=== PATIENT | female | born 2000 | race Caucasian/White ===

== ENCOUNTER → 2019-02-25 | Outpatient (CLI) | payer BC ==
--- NOTE | 2019-02-25 10:09 | REP ---
RIGHT ANKLE SERIES: FOUR VIEWS. HISTORY: Acute right ankle pain. FINDINGS: Four views of the right ankle demonstrate a small accessory navicular ossicle. There is mild anterior ankle swelling. No fractures seen. Ankle mortise is intact. IMPRESSION: No acute bony abnormality. Mild swelling anteriorly. Accessory navicular ossicle.
== END ==
LOC: M CLY 08:16
PROVIDERS: ATTEND Family Medicine
DX: M89.8X7 Other specified disorders of bone, ankle and foot (principal)

== ENCOUNTER → 2020-12-03 | Outpatient (CLI) | payer BC ==
[~2020-12-03] MED LIST: ERYTGEL TOP; HYDR-3713 PO; PORTTAB PO; SULF1TAB93 PO; TRET0.02 TOP
== END ==
LOC: M LABSMTC 10:15
PROVIDERS: ATTEND Anesthesiology
DX: Z01.812 Encounter for preprocedural laboratory examination (principal); Z20.822 Contact with and (suspected) exposure to COVID-19

== ENCOUNTER 2020-12-08 09:43 | Day surgery (SDC) | payer BC ==
[~2020-12-08] VITALS: Ht 160 cm; Wt 78.0 kg
[~2020-12-08 09:43] MED LIST changes: -HYDR-3713 PO; +LR 1,000 ML IV ONE; +ceFAZolin SOD 2 GM in IV 1 EA IV ONE
[2020-12-08] MEDS ORDERED: propofoL 200 MG/20 ML VIAL As Ordered ONE ×2 (09:46→12:12)
[2020-12-08] MEDS ORDERED: LIDOCAINE 2% 100MG/5ML SDV (FOR ANES.) As Ordered ONE (09:46)
[2020-12-08] MEDS ORDERED: fentaNYL 100 MCG/2 ML INJECTION (J3010) As Ordered ONE (09:47)
[2020-12-08] MEDS ORDERED: MIDAZOLAM INJ 2MG/2ML VIAL (J2250 PER 1MG) As Ordered ONE (09:47)
[2020-12-08] MEDS ORDERED: dexameTHASONE 4 MG/ML 1ML VIAL (J1100 PER 1MG) As Ordered ONE ×2 (09:47→10:00)
[2020-12-08] MEDS ORDERED: ONDANSETRON 4MG/2ML VIAL As Ordered ONE (09:47)
--- OUTSIDE RECORDS SUMMARY | 2020-12-08 09:49 | CCD | Continuity of Care Document ---
Author Author Jana KULKARNI DPM Organization Unknown Address [address] [place] [address], [facility] [address] [place] [address] Phone [phone] Care Team Providers Care Nurse Manager Name Role Phone Sharrigabo CHILDRESS Fabián AUTM [phone] Problems Active Problems Provider Date Matt's polly Rodolfo Kulkarni DPM Onset: 10/30/2020 Tailor's bunion Rodolfo Kulkarni DPM Onset: 10/30/2020 Corns and callosities Rodolfo Kulkarni DPM Onset: 10/30/2020 Social History Type Date Description Comments Sex Unknown ETOH Use Rarely consumes alcohol Tobacco Use Start: Unknown Patient has never smoked Allergies, Adverse Reactions, Alerts Description No Known Drug Allergies Medications Active Medications SIG Qnty Indications Ordering Provide r Date Sulfamethoxazole/Trimethoprim DS 800-160mg Tablets Unknown Tretinoin 0.025% Cream Unknown Benzoyl Peroxide-Erythromycin 5-3% Gel Apply To Affected Area Twice Daily Unknown Buspirone HCL 5mg Tablets Fabián Ricardo DO [place]-28 0.15-30mg-mcg Tablets Rodolfo Orozco DO Clotrimazole/Betamethasone Dipropionate 1-0.05% Cream Apply 1 Application To Affected Area(S) Two Times Manda y For 14 Days Unknown Immunizations Description No Information Available Vital Signs Date Vital Result Comment 10/18/2020 3:00pm Height 62 inches 5'2" Weight 160.00 lb BP Systolic 140 mmHg BP Diastolic 70 mmHg Heart Rate 72 /min BMI (Body Mass Index) 29.3 kg/m2 Results Description No Information Available Procedures Date Code Description Status 10/18/2020 58991 X-Ray Foot Complete Completed 10/18/2020 84921 X-Ray Foot Complete Completed Medical Devices Description No Information Available Encounters Type Date Location Provider Dx Diagnosis Office Visit 11/29/2020 2:45p [place] [facility] Rodolfo Kulkarni DPM M21.629 Bunionette of unspecified foot L84 Corns and callosities Office Visit 10/18/2020 3:00p [place] [facility] Rodolfo Kulkarni DPM M21.621 Bunionette of right foot M21.622 Bunionette of left foot L84 Corns and callosities Assessments Date Code Description Provider 11/29/2020 M21.629 Bunionette of unspecified foot A stephie Kulkarni DPM 11/29/2020 L84 Corns and callosities Rodolfo Kulkarni DPM 10/18/2020 M21.621 Bunionette of right foot Rodolfo Kulkarni DPM 10/18/2020 M21.622 Bunionette of left foot Rodolfo Kulkarni, ANISA 10/18/2020 L84 Corns and callosities Rodolfo Kulkarni DPM Plan of Treatment Future Appointment(s):* 01/10/2021 2:45 pm - Rodolfo Kulkarni DPM at [facility] Functional Status Description No Information Available Mental Status Description No Information Available Referrals Description No Information Available
--- OUTSIDE RECORDS SUMMARY | 2020-12-08 09:49 | CCD | Continuity of Care Document ---
Author Author Jana KULKARNI DPM Organization Unknown Address [address] [place] [address] [address] [place] [address] Phone [phone] Care Team Providers Care Echocardiography Radiology Technologist Name Role Phone Haleigh CHILDRESS Fabián AUTM [phone] Problems Active Problems Provider Date Emersons polly Rodolfo Kulkarni DPM Onset: 10/30/2020 Tailor's [...] Buspirone HCL 5mg Tablets Fabián Ricardo DO [place]-28 0.15-30mg-mcg Tablets Rodolfo Orozco DO Clotrimazole/Betamethasone Dipropionate 1-0.05% Cream Apply 1 Application To Affected Area(S) Two Times Manda y For 14 Days Unknown Immunizations Description No Information Available Vital Signs Date Vital Result Comment 12/01/2020 4:13pm Height 62 inches 5'2" Weight 160.00 lb BP Systolic 130 mmHg BP Diastolic 72 mmHg Heart Rate 64 /min BMI (Body Mass Index) 29.3 kg/m2 10/18/2020 3:00pm Height 62 inches 5'2" Weight 160.00 lb BP Systolic 140 mmHg BP Diastolic 70 mmHg Heart Rate 72 /min BMI (Body Mass Index) 29.3 kg/m2 Results Description No Information Available Procedures Date Code Description Status 10/18/2020 81221 X-Ray Foot Complete Completed 10/18/2020 64417 X-Ray Foot Complete Completed Medical Devices Description No Information Available Encounters Type Date Location Provider Dx Diagnosis Office Visit 11/29/2020 2:45p [place] [facility] Rodolfo Kulkarni DPM M21.629 Bunionette of unspecified foot L84 Corns and callosities Office Visit 10/18/2020 3:00p [place] [facility] Rodolfo Kulkarni DPM M21.621 Bunionette of right foot M21.622 Bunionette of left foot L84 Corns and callosities Assessments Date Code Description Provider 11/29/2020 M21.629 Bunionette of unspecified foot Blayne Kulkarni, ANISA 11/29/2020 L84 Corns and callosities Rodolfo Kulkarni DPM 10/18/2020 M21.621 Bunionette of right foot Rodolfo Kulkarni DPM 10/18/2020 M21.622 Bunionette of left foot Rodolfo Kulkarni DPM 10/18/2020 L84 Corns and callosities Rodolfo Kulkarni DPM Plan of Treatment Future Appointment(s):* 01/10/2021 2:45 pm - Rodolfo Kulkarni DPM at [facility] Functional Status Description No Information Available Mental Status Description No Information Available Referrals Description No Information Available
--- OUTSIDE RECORDS SUMMARY | 2020-12-08 09:50 | CCD ---
Author Author [facility] Organization [facility] Address Unknown Phone Unavailable Care Team Providers Care Oracle Drm Consultant Name Role Phone Fabián Ricardo Unavailable PROBLEMS Type Condition ICD9-CM Code [id number] Code Onset Dates Condition S tatus SNOMED Code Notes Problem Migraine without aura and without status migrain osus, not intractable G43.009 Active 435436185 Problem Anxiety F41.9 Active 06682766 Problem Migraine G43.909 Active 17115827 ALLERGIES No Known Allergies ENCOUNTERS from 1998 to 2020-09-21 Encounter Location Date Provider Diagnosis [facility] [address] [place] [address] Sep Fabián Ricardo Acne L70.9 IMMUNIZATIONS Vaccine Route Administration Date Status Influenza (18 yrs & older) Flublok IM Intramuscular Sep 16, 2020 Administered Influenza (18 yrs & older) Flublok IM Intramuscular Oct 21, 2019 Administered Meningococcal (VFC) IM Intramuscular Jun 05, 2016 Administere d Influenza (6mo & up) Fluzone IM Intramuscular Aug 12, 2018 Ad ministered Influenza (6mo & up) Fluzone IM Intramuscular Aug 14, 2017 Ad ministered SOCIAL HISTORY Tobacco Use: Social History Observation Description Date Details (start date - stop date) Never Smoker Sex Assigned At : Social History Observation Description Sex Assigned At Unknown Education: Question Answer Notes Level of Education: College Audit Question Answer Notes Total Score: 3 Interpretation: Alcohol Education Sexual Hx: Question Answer Notes Had sex in the last 12 months (vaginal, oral, or anal)? Yes Have you ever had an STD? No Prevention Strategies discussed: Other with Men only Use protection? Yes How often? All of the time Drug and Alcohol Question Answer Notes Total Score: 0 Interpretation: No problems reported BMI Care Goal Follow-Up Question Answer Notes Above Normal BMI Follow-Up Dietary management educatio n, guidance, and counseling Tobacco Use: Question Answer Notes Are you a: never smoker REASON FOR REFERRAL No Information VITAL SIGNS No information MEDICATIONS Medication SIG (Take, Route, Frequency, Duration) Notes Start Da te End Date Status Benzamycin 5-3 % 1 application to affected ar ea Externally Twice a day for 90 day(s) Active Retin-A 0.025 % 1 application to affected ar ea in the evening to face Externally Once a day for 90 day(s) Dec, Not-Jett ing Clotrimazole-Betamethasone 1-0.05 % 1 application to a ffected area Externally Twice a day for 14 day(s) March, Active Levonorgestrel-Ethinyl Estrad 0.15-30 MG-MCG 1 tablet Orally Once a d ay Active BusPIRone HCl 5 MG 1 tablet Orally Three times a day for 10 day(s) Active PROCEDURES No Information RESULTS No Results REASON FOR VISIT referral to dermatology MEDICAL (GENERAL) HISTORY Type Description Date Medical History Headaches Medical History Acne Surgical History No know Surgical history Goals Section No Information Health Concerns No Information MEDICAL EQUIPMENT No Information MENTAL STATUS No Information FUNCTIONAL STATUS No Information ASSESSMENTS Encounter Date Diagnosis Assessment Notes Treatment Notes Treatm ent Clinical Notes Sep, Acne (ICD-10 - L70.9) PLAN OF TREATMENT Next Appt Details Provider Name:Fabián Ricardo, 08:00:00 AM, [address] [place] [address], [id number], Insurance Providers Payer Name Payer Address Payer Phone Insured Name Patient Relati onship to Insured Coverage Start Date Coverage End Date BCBS [place] PPO [phone] [facility] [place] [address] DAILY,FLAQUITA Koroma [id number]
--- OUTSIDE RECORDS SUMMARY | 2020-12-08 09:50 | CCD | Continuity of Care Document ---
Author Author Jana KULKARNI DPRylie Organization Unknown Address [address] [place] [address], [facility] [address] [place] [address] Phone [phone] Care Team Providers Care Torch Straightener And Heater Name Role Phone Fabián Ricardo DOM [phone] Problems Description No Information Available Social History Type Date Description Comments Sex [...] Buspirone HCL 5mg Tablets Fabián Ricardo DO [place]-28 0.15-30mg-mcg Tablets Ernesto CHILDRESSRodolfo Clotrimazole/Betamethasone Dipropionate 1-0.05% Cream Apply 1 Application [...] Available Procedures Date Code Description Status 10/18/2020 33441 X-Ray Foot Complete Completed 10/18/2020 00851 X-Ray Foot Complete Completed Medical Devices Description No Information Available Encounters Type Date Location Provider Dx Diagnosis Office Visit 10/18/2020 3:00p [place] [facility] Rodolfo Kulkarni DPM M21.621 Bunionette of right foot M21.622 Bunionette of left foot L84 Corns and callosities Assessments Date Code Description Provider 10/18/2020 M21.621 Bunionette of right foot Rodolfo Kulkarni DPM 10/18/2020 M21.622 Bunionette of left foot Rodolfo Kulkarni DPM 10/18/2020 L84 Corns and callosities Rodolfo Kulkarni DPM Plan of Treatment Future Appointment(s):* 11/29/2020 2:45 pm - Rodolfo Kulkarni DPM at [facility] Functional Status Description No Information Available Mental Status Description No Information Available Referrals Description No Information Available
--- OUTSIDE RECORDS SUMMARY | 2020-12-08 09:50 | CCD | Continuity of Care Document ---
Author Jana Bravo DPM Organization Unknown Address [address] [place] [address], [facility] [address] [place] [address] Phone [phone] Care Team Providers Care Community Health Planning Director Name Role Phone Fabián Ricardo DO AUTM [phone] Problems Description No Information Available Social History [...] Buspirone HCL 5mg Tablets Fabián Ricardo DO [place]-28 0.15-30mg-mcg Tablets Rodolfo Orozco DO Clotrimazole/Betamethasone Dipropionate [...] kg/m2 Results Description No Information Available Procedures Description No Information Available Medical Devices Description No Information Available Encounters Description No Information Available Assessments Description No Information Available Plan of Treatment Future Appointment(s):* 11/29/2020 2:45 pm - Rodolfo Vidal DPM at [place] [facility] Functional Status Description No Information Available Mental Status Description No Information Available Referrals Description No Information Available
--- OUTSIDE RECORDS SUMMARY | 2020-12-08 09:50 | CCD ---
Author Author [facility] Organization [facility] Address Unknown Phone Unavailable Care Team Providers Care Sales Director Name Role Phone Rose Mary Curiel Unavailable PROBLEMS Type Condition ICD9-CM Code [id number] Code Onset Dates Condition S tatus SNOMED Code Notes Problem Migraine without aura and without status migrain osus, not intractable G43.009 Active 768926625 Problem Anxiety F41.9 Active 00857146 Problem Migraine G43.909 Active 63626507 ALLERGIES No Known Allergies ENCOUNTERS from 1998 to 2020-09-21 Encounter Location Date Provider Diagnosis [facility] [address] [place] [address] Sep Rose Mary Curiel Migraine without aura and without status migrainosus, not intractable G43.009 and Encounter for immunization Z23 IMMUNIZATIONS Vaccine Route Administration Date Status Influenza [...] REASON FOR REFERRAL No Information VITAL SIGNS Weight 172.4 lbs Sep, Height 63.5 in Sep, BMI 30.06 kg/m2 Sep, Heart Rate 65 /min Sep, Respiratory Rate 18 /min Sep, Temperature 97.6 degrees Fahrenheit Sep, Oximetry 100 Sep, Blood pressure systolic 102 mm Hg Sep, Blood pressure diastolic 68 mm Hg Sep, MEDICATIONS Medication SIG (Take, Route, Frequency, Duration) [...] a day for 10 day(s) Active PROCEDURES Procedure Date Ordered Result Body Site Immunization: Flublok Quadrivalent (18 years & older) 0.5mL IM (Influenza) 2020-09-16 N/A RESULTS No Results REASON FOR VISIT flu shot-ok per JA MEDICAL (GENERAL) HISTORY Type Description Date Medical History Headaches Medical History Acne Surgical History No know Surgical history Goals Section No Information Health Concerns No Information MEDICAL EQUIPMENT No Information MENTAL STATUS No Information FUNCTIONAL STATUS No Information ASSESSMENTS Encounter Date Diagnosis Assessment Notes Treatment Notes Treatm ent Clinical Notes Sep, Migraine without aura and wi thout status migrainosus, not intractable (ICD-10 - G43.009) Continue taking excedrine migraine for symptomatic relief Sep, Encounter for immunization (ICD-10 - Z23) Patient Educated with: FLU Vaccine, Inactivated [id number] (FLU Vaccine, Inactivated [id number]) Sep, Other Carol Galvan RN BSN, Student-ON SITE COORDINATOR. I was present during examination and agree with documentation as entered by HABILITATION WORKER student PLAN OF TREATMENT Treatment Notes Assessment Notes Clinical Notes Migraine without aura and without status migrainosus, not in tractable Continue taking excedrine migraine for symptomatic relief Encounter for immunization Patient Educated with: FLU Vaccine, Inactivated [id number] (FLU Vaccine, Inactivated [id number]) Next Appt Details prn Reason: Provider Name:Fabiánrenée Ricardo, 08:00:00 AM, [address] [place] [address], [id number], Insurance Providers Payer Name Payer Address Payer Phone Insured Name Patient Relati onship to Insured Coverage Start Date Coverage End Date [id number] [facility] [employer] [place] [address] DAILY,FLAQUITA Koroma [id number]
--- OUTSIDE RECORDS SUMMARY | 2020-12-08 09:51 | CCD ---
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 Name Role Phone AGWILMA COURTNEY PA, L Courtney PA Unavailable AGLEY COURTNEY PA, L Courtney PA Unavailable AGLEY COURTNEY PA, L Courtney PA Unavailable AGLEY COURTNEY PA, L Courtney PA Unavailable AGLEY COURTNEY PA, L Courtney PA Unavailable DARRION, JORDAN PA Unavailable Unavailable DARRION, JORDAN PA Unavailable Unavailable DARRION, JORDAN PA Unavailable Unavailable DARRION, JORDAN PA Unavailable Unavailable DARRION, JORDAN PA Unavailable Unavailable DARRION, JORDAN PA Unavailable Unavailable DARRION, JORDAN PA Unavailable Unavailable DARRION, JORDAN PA Unavailable Unavailable DARRION, JORDAN PA Unavailable Unavailable DARRION, JORDAN PA Unavailable Unavailable DARRION, JORDAN PA Unavailable Unavailable DARRION, JORDAN PA Unavailable Unavailable DARRION, JORDAN PA Unavailable Unavailable DARRION, JORDAN PA Unavailable Unavailable DARRION, JODRAN PA Unavailable Unavailable Alejandro KULKARNI DPM Unavailable Unavailable Alejandro KULKARNI DPM Unavailable Unavailable Alejandro KULKARNI DPM Unavailable Unavailable Alejandro KULKARNI DPM Unavailable Unavailable Alejandro KULKARNI DPM Unavailable Unavailable Alejandro KULKARNI DPM Unavailable Unavailable Alejandro KULKARNI DPM Unavailable Unavailable Alejandro KULKARNI DPM Unavailable Unavailable MAJAK, R RENETTA DPM Unavailable Unavailable MAJAK, R RENETTA DPM Unavailable Unavailable MAJAK, R RENETTA DPM Unavailable Unavailable MAJAK, R RENETTA DPM Unavailable Unavailable MAJAK, R RENETTA DPM Unavailable Unavailable MAJAK, R RENETTA DPM Unavailable Unavailable MAJAK, R RENETTA DPM Unavailable Unavailable MAJAK, R RENETTA DPM Unavailable Unavailable MAJAK, R RENETTA DPM Unavailable Unavailable MAJAK, R RENETTA DPM Unavailable Unavailable MAJAK, R RENETTA DPM Unavailable Unavailable MAJAK, R RENETTA DPM Unavailable Unavailable MAJAK, R RENETTA DPM Unavailable Unavailable MAJAK, R RENETTA DPM Unavailable Unavailable MAJAK, R RENETTA DPM Unavailable Unavailable MAJAK, R RENETTA DPM Unavailable Unavailable MAJAK, R RENETTA DPM Unavailable Unavailable MAJAK, R RENETTA DPM Unavailable Unavailable MAJAK, R RENETTA DPM Unavailable Unavailable MAJAK, R RENETTA DPM Unavailable Unavailable MAJAK, R RENETTA DPM Unavailable Unavailable MAJAK, R RENETTA DPM Unavailable Unavailable Ga MCKENZIE DO Unavailable Unavailable JONAHGa HERNANDEZ DO Unavailable Unavailable JONAHGa HERNANDEZ DO Unavailable Unavailable JONAHGa HERNANDEZ DO Unavailable Unavailable JONAHGa HERNANDEZ DO Unavailable Unavailable JONAHGa HERNANDEZ DO Unavailable Unavailable JNOAHGa HERNANDEZ DO Unavailable Unavailable Ga MCKENZIE DO Unavailable Unavailable JONAHGa HERNANDEZ DO Unavailable Unavailable JONAHGa HERNANDEZ DO Unavailable Unavailable JONAHGa HERNANDEZ DO Unavailable Unavailable Ga MCKENZIE DO Unavailable Unavailable Ga MCKENZIE DO Unavailable Unavailable Ga MCKENZIE DO Unavailable Unavailable JONAHGa HERNANDEZ DO Unavailable Unavailable JONAHGa HERNANDEZ DO Unavailable Unavailable JONAHGa HERNANDEZ DO Unavailable Unavailable JONAHGa HERNANDEZ DO Unavailable Unavailable JONAHGa HERNANDEZ DO Unavailable Unavailable JONAHGa HERNANDEZ DO Unavailable Unavailable JONAHGa HERNANDEZ DO Unavailable Unavailable JONAHGa HERNANDEZ DO Unavailable Unavailable JONAHGa HERNANDEZ DO Unavailable Unavailable AUTUMNIZENGAAwaisON DO Unavailable Unavailable HUIZENGAAwaisON DO Unavailable Unavailable HUIZENGAAwais DO Unavailable Unavailable HUIZENGAAwais DO Unavailable Unavailable HUIZENGA D GERARDO DO Unavailable Unavailable HUIZENGA D GERARDO DO Unavailable Unavailable HUIZENGA D GERARDO DO Unavailable Unavailable HUIZENGA Awais CARRILLO DO Unavailable Unavailable HUIZENGA, Awais CARRILLO DO Unavailable Unavailable HUIZENGA, Awais CARRILLO DO Unavailable Unavailable HUIZENGA, Awais CARRILLO DO Unavailable Unavailable HUIZENGA, Awais CARRILLO DO Unavailable Unavailable HUIZENGA, Awais CARRILLO DO Unavailable Unavailable HUIZENGA, Awais CARRILLO DO Unavailable Unavailable HUIZENGA, Awais CARRILLO DO Unavailable Unavailable HUIZENGA, Awais CARRILLO DO Unavailable Unavailable HUIZENGA, Awais CARRILLO DO Unavailable Unavailable HUIZENGA, Awais CARRILLO DO Unavailable Unavailable HUIZENGA, Awais CARRILLO DO Unavailable Unavailable HUIZENGA, Awais CARRILLO DO Unavailable Unavailable HUIZENGA, Awais CARRILLO DO Unavailable Unavailable HUIZENGA, Awais CARRILLO DO Unavailable Unavailable HUIZENGA, Awais CARRILLO DO Unavailable Unavailable HUIZENGA, Awais CARRILLO DO Unavailable Unavailable HUIZENGA, Awais CARRILLO DO Unavailable Unavailable HUIZENGA, Awais CARRILLO DO Unavailable Unavailable HUIZENGA, Awais CARRILLO DO Unavailable Unavailable HUIZENGA, Awais CARRILLO DO Unavailable Unavailable HUIZENGA, Awais CARRILLO DO Unavailable Unavailable HUIZENGA, Awais CARRILLO DO Unavailable Unavailable HUIZENGA, Awais CARRILLO DO Unavailable Unavailable HUIZENGA, Awais CARRILLO DO Unavailable Unavailable HUIZENGA, Awais CARRILLO DO Unavailable Unavailable HUIZENGA, Awais CARRILLO DO Unavailable Unavailable HUIZENGA, Awais CARRILLO DO Unavailable Unavailable HUIZENGA, Awais CARRILLO DO Unavailable Unavailable HUIZENGA, Awais CARRILLO DO Unavailable Unavailable HUIZENGA, Awais CARRILLO DO Unavailable Unavailable HUIZENGA, Awais CARRILLO DO Unavailable Unavailable HUIZENGA, Awais CARRILLO DO Unavailable Unavailable HUIZENGA, Awais CARRILLO DO Unavailable Unavailable HUIZENGA, Awais CARRILLO DO Unavailable Unavailable HUIZENGA, Awais CARRILLO DO Unavailable Unavailable HUIZENGA, Awais CARRILLO DO Unavailable Unavailable HUIZENGA, Awais CARRILLO DO Unavailable Unavailable HUIZENGA, Awais CARRILLO DO Unavailable Unavailable HUIZENGA, Awais CARRILLO DO Unavailable Unavailable HUIZENGA, Awais CARRILLO DO Unavailable Unavailable HUIZENGA, Awais CARRILLO DO Unavailable Unavailable HUIZENGA, Awais CARRILLO DO Unavailable Unavailable HUIZENGA, Awais CARRILLO DO Unavailable Unavailable HUIZENGA, Awais CARRILLO DO Unavailable Unavailable HUIZENGA, D GERARDO DO Unavailable Unavailable HUIZENGA, D GERARDO DO Unavailable Unavailable HUIZENGA, D GERARDO DO Unavailable Unavailable HUIZENGA, D GERARDO DO Unavailable Unavailable HUIZENGA, D GERARDO DO Unavailable Unavailable HUIZENGA, D GERARDO DO Unavailable Unavailable HUIZENGA, D GERARDO DO Unavailable Unavailable HUIZENGA, D GERARDO DO Unavailable Unavailable HUIZENGA, D GERARDO DO Unavailable Unavailable HUIZENGA, D GERARDO DO Unavailable Unavailable HUIZENGA, D GERARDO DO Unavailable Unavailable HUIZENGA, D GERARDO DO Unavailable Unavailable HUIZENGA, D GERARDO DO Unavailable Unavailable HUIZENGA, D GERARDO DO Unavailable Unavailable HUIZENGA, D GERARDO DO Unavailable Unavailable HUIZENGA, D GERARDO DO Unavailable Unavailable HUIZENGA, D GERARDO DO Unavailable Unavailable HUIZENGA, D GERARDO DO Unavailable Unavailable HUIZENGA, D GERARDO DO Unavailable Unavailable HUIZENGA, D GERARDO DO Unavailable Unavailable HUIZENGA, D GERARDO DO Unavailable Unavailable Re-disclosure Warning The records that you are about to access may contain information from federally-assisted alcohol or drug abuse programs. If such information is present, then the following federally mandated warning applies: This information has been disclosed to you from records protected by federal confidentiality rules (42 CFR part 2). The federal rules prohibit you from making any further disclosure of this information unless further disclosure is expressly permitted by the written consent of the person to whom it pertains or as otherwise permitted by 42 CFR part 2. A general authorization for the release of medical or other information is NOT sufficient for this purpose. The Federal rules restrict any use of the information to criminally investigate or prosecute any alcohol or drug abuse patient.The records that you are about to access may contain highly sensitive health information, the redisclosure of which is protected by Article 27-F of the [facility] Public Health law. If you continue you may have access to information: Regarding HIV / AIDS; Provided by facilities licensed or operated by the [facility] Office of Mental Health; or Provided by the [facility] Office for People With Developmental Disabilities. If such information is present, then the following [facility] mandated warning applies: This information has been disclosed to you from confidential records which are protected by state law. State law prohibits you from making any further disclosure of this information without the specific written consent of the person to whom it pertains, or as otherwise permitted by law. Any unauthorized further disclosure in violation of state law may result in a fine or custodial sentence or both. A general authorization for the release of medical or other information is NOT sufficient authorization for further disc losure. Encounters Encounter Providers Location Date Indications Data Source(s ) Office Visit Attender: RENETTA KULKARNI [facility] Office 11/06 01:45:00 PM EST [facility] ([facility] Office Visit Attender: RENETTA KULKARNI [facility] Office 10/05 02:00:00 PM EST [facility] ([facility] Outpatient Attender: Courtney AGUILERA CPSCAORT-CPS LADER 10/13/2020 02:41:00 PM EST - 10/13/2020 02:42:00 PM EST [facility] Patient discharged. Unknown [address] [facility] [id number] 09/21/2020 12:00:00 AM EST eCW1 ([facility]) Outpatient [address] [facility] [id number] 09/16/2020 12:00:00 AM EST eCW1 ([facility]) Unknown [address] [facility] [id number] 09/07/2020 12:00:00 AM EST [facility]1 [facility] Outpatient [address] [facility] [id number] 05/25/2020 12:00:00 AM EDT eCW1 ([facility]) [facility] [address] [place] [id number] 01/19/2020 12:00:00 AM EDT eCW1 ([facility]) [facility] [address] [facility] [id number] 01/13/2020 12:00:00 AM EDT eCW1 ([facility]) Outpatient Attender: RENETTA Evans: GERARDO LUGO DO EMERGENCY ROOM- REFERRED LABS (DROP OFFS) 12/25/2019 11:56:00 AM EST - 12/25/2019 11:56:00 AM [facility] Outpatient Attender: RENETTA MCKENZIE DO 12/25/2019 09:02:00 A M [address] [address] 12/25/2019 12:00:00 AM EST eCW1 ([facility]) [facility]ty [facility] 12/25/2019 12: 00:00 AM EST eCW1 ([facility]) [facility] 12/24/2019 12:00:00 AM EST eCW1 ([facility]) [address] [address] 12/22/2019 12:00:00 AM EST eCW1 ([facility]) [address] [address] 10/21/2019 12:00:00 AM EST eCW1 ([facility]) Outpatient Attender: JORDAN Queen: MARYAM LUGO DO EMERGENCY ROOM-RAD 09/25/2012 12:24:00 PM EST - 09/25/2012 12:24:00 PM [facility] Immunizations Vaccine Date Status Description Data Source(s) influenza, recombinant, quadrIvalent,injectable, prese rvative free 09/16/2020 01:46:00 PM EST completed eCW1 ([facility]) influenza, recombinant, quadrIvalent,injectable, prese rvative free 09/16/2020 01:46:00 PM EST completed eCW1 ([facility]) influenza, recombinant, quadrIvalent,injectable, prese rvative free 10/21/2019 10:18:00 AM EST completed eCW1 ([facility]) influenza, recombinant, quadrIvalent,injectable, prese rvative free 10/21/2019 10:18:00 AM EST completed eCW1 ([facility]) influenza, recombinant, quadrIvalent,injectable, prese rvative free 10/21/2019 10:18:00 AM EST completed eCW1 ([facility]) influenza, recombinant, quadrIvalent,injectable, prese rvative free 10/21/2019 10:18:00 AM EST completed eCW1 ([facility]) Medications Medication Brand Name Start Date Product Form Dose Route Admi nistrative Instructions Pharmacy Instructions Status Indications Reaction Description Data Source(s) 0.025 % 12/22/2019 12:00:00 AM EST cream 20 APPLY TO AFFECTED AREA(S) IN THE EVENING TO FACE ONCE DAILY APPLY TO AFFECTED AREA(S) IN THE EVENING TO FACE ONCE DAILY SOLD: 12/24/2019 James Torres s Insurance Providers Payer name Policy type / Coverage type Policy ID Covered alliance party ID Covered alliance party's relationship to hunter Policy Hunter Plan Information [place] 302/307 [id number] MO2 [id number] [place] 302/307 [id number] MO2 [id number] [place] [id number] S [id number] [place] [id number] CHILD VYS [id number] [place] [id number] CHILD [id number] BCBS [place] CHILD HLTH PLUS [id number] S [id number] ANSI-Commercial [id number] ANSI-Commercial [id number] ANSI-Commercial [id number] [place] [id number] CHILD VYS [id number] ANSI-Commercial [id number] ANSI-Commercial [id number] ANSI-Commercial [id number] ANSI-Not a Secondary Insurance [id number] ANSI-Not a Secondary Insurance [id number] UNITED HEALTHCARE MEDICAID MCD HMO [id number] S [id number] UN COMMUNITY PLAN [facility] [id number] SP [id number] SELF PAY SP UNAVAILABLE S UNAVAILA BLE UNITED HEALTHCARE MEDICAID MCD HMO UNAVAILABLE UNAVAILABLE EXCELLUS BCBS B [id number] S [id number] [facility] AMERICHOICE XIX -[facility] [id number] 18 [id number] SELF PAY SP [id number] S [id number] SELF PAY UNAVAILABLE UNAVAILA BLE PUPILS BENEFIT PLAN COMM [id number] S [id number] O BLUE [id number] SP [id number] Problems, Conditions, and Diagnoses Code Display Name Description Problem Type Effective Dates Data Source(s) Corns and callosities Corns and callosities Problem 10/30/2020 12:00:00 AM EST [facility] ([facility] [id number] Tailor's bunion Tailor's bunion Problem 10/30/2020 12:0 0:00 AM EST [facility] ([facility] [id number] Tailor's bunion Tailor's bunion Problem 10/30/2020 12:0 0:00 AM EST [facility] ([facility] F41.9 [id number] Anxiety Problem 04/27/2020 12:00:00 AM ED T eCW1 ([facility]) G43.009 [id number] Migraine without aur a and without status migrainosus, not intractable Problem 12/22/2019 12:00:00 AM EST W1 ([facility]) G43.009 [id number] Migraine without aur a and without status migrainosus, not intractable Problem 12/22/2019 12:00:00 AM EST [facility] ([facility]) L70.0 Acne vulgaris ACNE VULGARIS Diagnosis 10/13/2020 02:41:00 PM [facility] Z12.4 Encounter for screening for malignant ne oplasm of cervix ENCOUNTER FOR SCREENING FOR MALIGNANT NEOPLASM OF CERVIX Diagnosis 12/25/2019 11:56: 00 AM [facility] Z30.41 Encounter for surveillance of contracept nanda pills ENCOUNTER FOR SURVEILLANCE OF CONTRACEPTIVE PILLS Diagnosis 12/25/2019 09:02:00 AM [facility] Z01.419 Encounter for gynecological examination (general) (routine) without abnormal findings ENCNTR FOR BOBBIN STRIPPER EXAM (GENERAL) (ROUTINE) W/O ABN FINDIN GS Diagnosis 12/25/2019 09:02:00 AM [facility] Surgeries/Procedures Procedure Description Date Indications Data Source(s) RADEX FOOT COMPLETE MINIMUM 3 VIEWS 10/18/2020 12:00:0 0 AM EST [facility] ([facility] RADEX FOOT COMPLETE MINIMUM 3 VIEWS 10/18/2020 12:00:0 0 AM EST [facility] Hospital outpatient clinic visit for assessment and ma nagement of a patient Hospital Outpatient Clinic Visit 10/13/2020 12:00:00 AM [facility] Immunization: Flublok Quadrivalent (18 years & older) 0.5mL IM (Influenza) 09/16/2020 12:00:00 AM EST eCW1 (Critical access hospital) SPECIMEN HANDLING 12/25/2019 12:00:00 AM [facility] eCW1 ([facility]) Results ID Date Data Source [id number] 12/03/2020 10:00:00 AM EST [facility] Name Value Range Interpretation Code Description Data Mady rce(s) Supporting Document(s) SARS coronavirus 2 RNA Not Detected [facility] [place] This lab was ordered by [facility] and reported by [facility]. ID Date Data Source [id number] 12/25/2019 12:04:00 PM EST [facility] ital Specimen Comment: Source.............Cer vix;EndocervixSpecimen Comment: Other..............Oral ContraceptivesSpecimen Comment: No. of containers..01 ThinPrep Vial Name Value Range Interpretation Code Description Data Mady rce(s) Supporting Document(s) REFLEX PAP Comment . [facility] See below for HPV testing results. DIAGNOSIS: Comment . [facility] EPITHELIAL CELL ABNORMALITY.ATYPICAL SQU AMOUS CELLS OF UNDETERMINED SIGNIFICANCE (ASC-US). SPECIMEN ADEQUACY: Comment . [facility] juan Satisfactory for evaluation. Endocervic al and/or squamous metaplasticcells (endocervical component) are present. PERFORMED BY: Comment . [facility] Brenda Garcia, Supervisor Graphite (ASCP) ELECTRONICALLY SIGNED BY: Comment . [facility] MD, Pathologist . . . [facility] PATHOLOGIST PROVIDED ICD10: Comment . [facility] R87.610 NOTE: Comment . [facility] The Pap smear is a screening test design ed to aid in thedetection of premalignant and malignant conditions of theuterine cervix. It is not a diagnostic procedure andshould not be used as the sole means of detecting cervicalcancer. Both false-positive and false-negative reports dooccur. ID Date Data Source [id number] 12/30/2019 08:06:00 AM EST [facility] Name Value Range Interpretation Code Description Data Mady rce(s) Supporting Document(s) IGP,rfx Aptima HPV all pth Abnormal (applies to non-numeric results) [facility] TESTS RESULT FLAG UNI TS REF RANGE LAB Clinician Provided Cytology Information Source.............Cervix;Endocervix Other..............Oral Contraceptives No. of containers..01 ThinPrep VialDIAGNOSIS: [A] 01 EPITHELIAL CELL ABNORMALITY. ATYPICAL SQUAMOUS CELLS OF UNDETERMINED SIGNIFICANCE (ASC- US).Specimen adequacy: 01 Satisfactory for evaluation. Endocervical and/or squamous metaplastic cells (endocervical component) are present.Performed by: Brenda Garcia, Supervisor Graphite (ASCP)Electronic signed by Earline Denson MD, Pathologist. 01Pathologist ICD10: R87.610Note: Note 01 The Pap smear is a screening test designed to aid in the detection of premalignant and malignant conditions of the uterine cervix. It is not a diagnostic procedure and should not be used as the sole means of detecting cervical cancer. Both false-positive and false-negative reports do occur. Test Methodology: Note 01 This liquid based ThinPrep(R) pap test was screened with the use of an image guided system.. 01 See below for HPV testing results. --------- FLAG LEGEND: L-Low Normal,H-High Normal,LL-Alert Low,HH-Alert High <-Panic Low,>-Panic High,A-Abnormal,AA-Critical Abnormal Performed at:[address] [address] Vladimir Frost MD, ID Date Data Source [id number] 12/30/2019 08:06:00 AM EST [facility] Name Value Range Interpretation Code Description Data Mady rce(s) Supporting Document(s) HPV Aptima Abnormal (applies to non-numeric result s) [facility] TESTS RESULT FLAG UNI TS REF RANGE LAB HPV Aptima Positive [A] (Negative) 02 This nucleic acid amplification test detects fourteen high-risk HPV types (16,18,31,33,35,39,45,51,52,56,58,59,66,68) without differentiation. FLAG LEGEND: L-Low Normal,H-High Normal,LL-Alert Low,HH-Alert High <-Panic Low,>-Panic High,A-Abnormal,AA-Critical Abnormal Performed at:[address] [address] Vladimir Frost MD, Procedure Social History Code Duration Value Status Description Data Source(s ) Smoking 09/16/2020 12:00:00 AM EST Never Smoker completed Never S moker eCW1 ([facility]) Smoking 09/16/2020 12:00:00 AM EST Never Smoker completed Never S moker eCW1 ([facility]) Smoking 05/25/2020 12:00:00 AM EDT Never Smoker completed Never S moker eCW1 ([facility]) Smoking 05/25/2020 12:00:00 AM EDT Never Smoker completed Never S moker eCW1 ([facility]) Vital Signs ID Date Data Source UNK Name Value Range Interpretation Code Description Data Source(s) Body mass index (BMI) [Ratio] 29.3 kg/m2 29.3 k g/m2 [facility] Heart rate 64 /min 64 /min [facility] ([facility] Diastolic blood pressure 72 mm[Hg] 72 mm[Hg] [facility] Systolic blood pressure 130 mm[Hg] 130 mm[Hg] M EDENT ([facility] Body weight 160.00 [lb_av] 160.00 [lb_av] MEDEN T ([facility] Body height 62 [in_i] 62 [in_i] [facility] 5'2" Body mass index (BMI) [Ratio] 29.3 kg/m2 29.3 k g/m2 [facility] ([facility] Heart rate 72 /min 72 /min [facility] Diastolic blood pressure 70 mm[Hg] 70 mm[Hg] [facility] Systolic blood pressure 140 mm[Hg] 140 mm[Hg] [facility] ([facility] Body weight 160.00 [lb_av] 160.00 [lb_av] MEDEN T ([facility] Body height 62 [in_i] 62 [in_i] [facility] 5'2" Diastolic blood pressure 68 mm[Hg] 68 mm[Hg] eCW1 ([facility]) Systolic blood pressure 102 mm[Hg] 102 mm[Hg] e CW1 ([facility]) Body temperature 97.6 [degF] 97.6 [degF] eCW1 ( [facility]) Respiratory rate 18 /min 18 /min eCW1 ([facility]) Heart rate 65 /min 65 /min eCW1 ([facility]) Body mass index (BMI) [Ratio] 30.06 kg/m2 30.06 kg/m2 eCW1 ([facility]) Body height 63.5 [in_i] 63.5 [in_i] eCW1 ([facility] Body weight 172.4 [lb_av] 172.4 [lb_av] eCW1 ([facility]) Diastolic blood pressure 78 mm[Hg] 78 mm[Hg] eCW1 ([facility]) Systolic blood pressure 129 mm[Hg] 129 mm[Hg] e CW1 ([facility]) Body temperature 98.3 [degF] 98.3 [degF] eCW1 ( [facility]) Respiratory rate 16 /min 16 /min eCW1 ([facility]) Heart rate 80 /min 80 /min eCW1 ([facility]) Body mass index (BMI) [Ratio] 28.77 kg/m2 28.77 kg/m2 W1 ([facility]) Body height 63.5 [in_i] 63.5 [in_i] eCW1 ([facility]) Body weight [lb_av] eCW1 ([facility]) Diastolic blood pressure 79 mm[Hg] 79 mm[Hg] eCW1 ([facility]) Systolic blood pressure 120 mm[Hg] 120 mm[Hg] e CW1 ([facility]) Body temperature 98.3 [degF] 98.3 [degF] eCW1 ( [facility]) Respiratory rate 16 /min 16 /min eCW1 ([facility]) Heart rate 62 /min 62 /min eCW1 ([facility]) Body mass index (BMI) [Ratio] 29.12 kg/m2 29.12 kg/m2 eCW1 ([facility]) Body height 63.5 [in_us] 63.5 [in_us] eCW1 ([facility]) Body weight Measured 167 [lb_av] 167 [lb_av] eC W1 ([facility]) Deprecated Oxygen saturation in Capillary blood by Oximetry 99 % 99 % eCW1 ([facility]) Respiratory rate 16 /min 16 /min eCW1 ([facility]) Heart rate 75 /min 75 /min eCW1 ([facility]) Body temperature 98.1 [degF] 98.1 [degF] eCW1 ( [facility]) Body mass index (BMI) [Ratio] 31.08 kg/m2 31.08 kg/m2 eCW1 ([facility]) Body weight Measured 168.6 [lb_av] 168.6 [lb_av ] eCW1 ([facility]) Body height 61.75 [in_us] 61.75 [in_us] eCW1 ([facility]) Diastolic blood pressure 76 mm[Hg] 76 mm[Hg] eCW1 ([facility]) Systolic blood pressure 119 mm[Hg] 119 mm[Hg] e CW1 ([facility]) Body temperature 98.1 [degF] 98.1 [degF] eCW1 ( [facility]) Respiratory rate 16 /min 16 /min eCW1 ([facility]) Heart rate 84 /min 84 /min eCW1 ([facility]) Body mass index (BMI) [Ratio] 28.59 kg/m2 28.59 kg/m2 eCW1 ([facility]) Body height 63.5 [in_us] 63.5 [in_us] eCW1 ([facility]) Body weight Measured 164 [lb_av] 164 [lb_av] eC W1 ([facility])
[2020-12-08] MEDS ORDERED: LIDOCAINE 1% MDV 20ML VIAL As Ordered ONE (10:00)
[2020-12-08] MEDS ORDERED: BUPIVACAINE HCL 0.5% 10ML VIAL As Ordered ONE (10:00)
[2020-12-08] MEDS ORDERED: KETOROLAC 60MG 2ML VIAL As Ordered ONE (11:57)
[2020-12-08] MEDS ORDERED: ACETAMINOPHEN 1000MG 100ML IV BTL (OFIRMEV) (J0131 PER 10MG) As Ordered ONE (11:58)
[2020-12-08] MEDS ORDERED: HYDR-3713 PO (12:30)
--- NOTE | 2020-12-08 13:21 | RO ---
OPERATIVE NOTE DATE OF OPERATION: 12/08/2020 PREOPERATIVE DIAGNOSIS: Left foot tailor's bunionectomy. POSTOPERATIVE DIAGNOSIS: Left foot tailor's bunionectomy. PROCEDURE: Left foot tailor's bunionectomy and fifth metatarsal osteotomy. SURGEON: Rodolfo Vidal DPM. MACHINE II COREMAKER: None. ANESTHESIA: Monitored anesthesia care with preop injection of 11 mL of 1:1 mixture of 1% lidocaine plain and 0.5% marcaine plain. ESTIMATED BLOOD LOSS: Minimal. MATERIALS: Arthrex 2.5 headless compression screw, 3-0 and 4-0 Vicryl, and 4-0 nylon. INJECTABLES: 1 mL of Decadron 4 mg/mL. COMPLICATIONS: None. CONDITION: Stable. INDICATIONS FOR PROCEDURE: Jana Plascencia is a 20-year-old female who presented to [facility] with a painful tailor's bunion of the left foot. She presents today for surgical correction. The patient's side and site were identified and marked in the preoperative area. Consent was reviewed and obtained. The risks, complications, and alternatives to the procedure were explained to the patient in detail and all questions were answere. DESCRIPTION OF PROCEDURE: The patient was brought to the operating room and placed on the operating room table in the supine position. Monitored anesthesia care was delivered by the anesthesia team. Preop injection of 11 mL of 1:1 mixture of 1% lidocaine plain and 0.5% marcaine plain was injected into the left foot. The left foot was prepped and draped in the normal sterile fashion. Tourniquet was applied to the left ankle and inflated to 250 mmHg. A dorsal incision was made over the fifth metatarsal and carried through with a #15-blade. Attention was paid to the fifth metatarsophalangeal joint capsule and T-capsulotomy was performed exposing the metatarsal head. The lateral eminence was resected with sagittal saw and osteotomy was performed of the metatarsal head transposing it medially. This was fixed with an Arthrex 2.5 headless compression screw. Remaining bone ledge was resected with the sagittal saw and smoothed with the rasp. The site was irrigated with normal saline. Capsular repair was performed with 3-0 Vicryl, subcutaneous closure with 4-0 Vicryl, and skin closure with 4-0 nylon. One mL of Decadron was injected. Sterile dressing was applied. Tourniquet was deflated. The patient was brought to the PACU with vital signs stable and neurovascular status intact. She will be partial weightbearing on the left foot and follow-up in office in two days.
[2020-12-08 13:40] VITALS: BP 139/83
== END 2020-12-08 13:50 | disposition home or self-care (01) ==
LOC: M SDC 09:43
PROVIDERS: ATTEND Podiatrist Foot & Ankle Surgery
DX: M21.622 Bunionette of left foot (principal); F41.9 Anxiety disorder, unspecified; G43.909 Migraine, unspecified, not intractable, without status migrainosus; Z79.899 Other long term (current) drug therapy
CPT/HCPCS: 28110; 81025; 88300; 97116; C1713; J0131; J0690; J1100; J1885; J2250; J2405; J3010

== ENCOUNTER → 2022-06-20 | Outpatient (CLI) | payer BC ==
[~2022-06-20] MED LIST changes: +BACTDSTA PO; +HYDR-3713 PO; -LR 1,000 ML IV ONE; -SULF1TAB93 PO; -ceFAZolin SOD 2 GM in IV 1 EA IV ONE
== END ==
LOC: M WHC 06:42
PROVIDERS: ATTEND Nurse Practitioner Family
DX: N92.6 Irregular menstruation, unspecified (principal); N83.01 Follicular cyst of right ovary; N83.02 Follicular cyst of left ovary

== ENCOUNTER → 2023-11-21 | Outpatient (CLI) | payer MEDICAID | LOC: M WHC 11:44 | PROVIDERS: ATTEND Obstetrics & Gynecology | DX: Z53.9 Procedure and treatment not carried out, unspecified reason (principal) ==

== ENCOUNTER → 2023-11-25 | Outpatient (CLI) | payer MEDICAID | LOC: M LAB 12:15 | PROVIDERS: ATTEND Obstetrics & Gynecology | DX: Z53.9 Procedure and treatment not carried out, unspecified reason (principal) ==

== ENCOUNTER → 2023-11-25 | Outpatient (CLI) | payer MEDICAID ==
[2023-11-25 13:04] LABS: HEMATOCRIT 34.6 % (36.0-47.0); HEMOGLOBIN 11.8 g/dl (12.0-15.5); MEAN CORPUSCULAR HEMOGLOBIN 29.1 pg (27.0-33.0); MEAN CORPUSCULAR HGB CONC 34.1 g/dl (32.0-36.5); MEAN CORPUSCULAR VOLUME 85.4 fl (80.0-96.0); PLATELET COUNT, AUTOMATED 397 10^3/uL (150-450); RED BLOOD COUNT 4.05 10^6/uL (4.00-5.40); WHITE BLOOD COUNT 9.7 10^3/uL (4.0-10.0)
[2023-11-25 14:05] LABS: HIV 1&2 SCREEN NEGATIVE (NEGATIVE)
[2023-11-25 14:13] LABS: HEPATITIS C VIRUS ABY INDEX < 0.02 INDEX (<0.8)
== END ==
LOC: M LAB 12:17
PROVIDERS: ATTEND Advanced Practice Midwife
DX: Z34.01 Encounter for supervision of normal first pregnancy, first trimester (principal)

== ENCOUNTER → 2023-12-07 | Outpatient (REF) | payer OTHER, MEDICAID | LOC: M SFHCCLAY 15:13 | PROVIDERS: ATTEND Physician Assistant | DX: N39.0 Urinary tract infection, site not specified (principal) ==

== ENCOUNTER → 2023-12-25 | Outpatient (CLI) | payer MEDICAID, OTHER | LOC: M WHC 13:58 | PROVIDERS: ATTEND Obstetrics & Gynecology | DX: Z34.92 Encounter for supervision of normal pregnancy, unspecified, second trimester (principal) ==

== ENCOUNTER → 2024-01-29 | Outpatient (REF) | payer OTHER, MEDICAID | LOC: M SFHCCLAY 15:39 | PROVIDERS: ATTEND Physician Assistant | DX: R30.0 Dysuria (principal) ==

== ENCOUNTER → 2024-02-26 | Outpatient (CLI) | payer MEDICAID, OTHER ==
[2024-02-26 15:34] LABS: HEMATOCRIT 31.1 % (36.0-47.0); HEMOGLOBIN 10.5 g/dl (12.0-15.5); MEAN CORPUSCULAR HEMOGLOBIN 29.9 pg (27.0-33.0); MEAN CORPUSCULAR HGB CONC 33.8 g/dl (32.0-36.5); MEAN CORPUSCULAR VOLUME 88.6 fl (80.0-96.0); PLATELET COUNT, AUTOMATED 355 10^3/uL (150-450); RED BLOOD COUNT 3.51 10^6/uL (4.00-5.40); WHITE BLOOD COUNT 12.4 10^3/uL (4.0-10.0)
== END ==
LOC: M PLALAB 12:32
PROVIDERS: ATTEND Advanced Practice Midwife
DX: Z34.02 Encounter for supervision of normal first pregnancy, second trimester (principal)

== ENCOUNTER → 2024-02-29 | Outpatient (REF) | payer OTHER | LOC: M SFHCCLAY 10:31 | PROVIDERS: ATTEND Nurse Practitioner Family | DX: N89.8 Other specified noninflammatory disorders of vagina (principal) ==

== ENCOUNTER 2024-04-18 16:54 | Outpatient (CLI) | payer OTHER ==
[~2024-04-18] VITALS: Ht 157.5 cm; Wt 96.1 kg
[~2024-04-18 16:54] MED LIST changes: +ERYT1GEL5 TOP; -ERYTGEL TOP
[2024-04-18] MEDS ORDERED: PREN1CHW4 PO (17:17)
[2024-04-18] MEDS ORDERED: TUMS500C PO (17:17)
[2024-04-18] MEDS ORDERED: HOME MED LIST COMPLETE! XX SCH (17:20)
[2024-04-18 17:25] VITALS: BP 131/87; O2SAT 99
[2024-04-18 17:41] VITALS: BP 126/82
[2024-04-18 18:11] VITALS: BP 115/71
[2024-04-18] MEDS: CALCIUM CARBONATE 500 MG CHEW U/D PO ONE (18:59)
[2024-04-18 20:37] LABS: HEMOGLOBIN 9.9 g/dl (12.0-15.5); MEAN CORPUSCULAR HEMOGLOBIN 27.9 pg (27.0-33.0); MEAN CORPUSCULAR HGB CONC 31.9 g/dl (32.0-36.5); MEAN CORPUSCULAR VOLUME 87.3 fl (80.0-96.0); PLATELET COUNT, AUTOMATED 250 10^3/uL (150-450); RED BLOOD COUNT 3.55 10^6/uL (4.00-5.40); WHITE BLOOD COUNT 9.9 10^3/uL (4.0-10.0)
[2024-04-18 21:37] LABS: PARTIAL THROMBOPLASTIN TIME 24.4 SECONDS (24.8-34.2); PROTHROMBIN TIME 12.9 SECONDS (12.5-14.5)
== END 2024-04-18 21:48 | disposition home or self-care (01) ==
LOC: M LDO 16:54
PROVIDERS: ATTEND Advanced Practice Midwife
DX: O26.893 Other specified pregnancy related conditions, third trimester (principal); O09.813 Supervision of pregnancy resulting from assisted reproductive technology, third trimester; O99.283 Endocrine, nutritional and metabolic diseases complicating pregnancy, third trimester; M25.552 Pain in left hip; E28.2 Polycystic ovarian syndrome; Z3A.35 35 weeks gestation of pregnancy; Y92.9 Unspecified place or not applicable; Y93.9 Activity, unspecified; Y99.9 Unspecified external cause status
CPT/HCPCS: 36415; 59025; 76815; 76820; 85027; 85384; 85460; 85610; 85730; G0463

== ENCOUNTER → 2024-04-22 | Outpatient (REF) | payer OTHER ==
[~2024-04-22] MED LIST changes: +PREN1CHW4 PO; +TUMS500C PO
== END ==
LOC: M PLALAB 08:44
PROVIDERS: ATTEND Obstetrics & Gynecology
DX: Z36.89 Encounter for other specified antenatal screening (principal); Z3A.36 36 weeks gestation of pregnancy

== ENCOUNTER → 2024-07-10 | Outpatient (REF) | payer OTHER ==
[2024-07-10 12:16] LABS: APPEARANCE, URINE HAZY (CLEAR); BACTERIA, URINE AUTO 1+ (NEGATIVE); BILIRUBIN, URINE AUTO NEGATIVE (NEGATIVE); BLOOD, URINE BLOOD NEGATIVE (NEGATIVE); COLOR, URINE YELLOW (YELLOW); GLUCOSE, URINE (UA) AUTO NEGATIVE (NEGATIVE); KETONE, URINE AUTO NEGATIVE (NEGATIVE); LEUKOCYTE ESTERASE, URINE AUTO NEGATIVE (NEGATIVE); MUCUS, URINE SMALL (NEGATIVE); NITRITE, URINE AUTO NEGATIVE (NEGATIVE); PROTEIN, URINE AUTO NEGATIVE (NEGATIVE); RBC, URINE AUTO 1 /HPF (0-3); SPECIFIC GRAVITY URINE AUTO 1.015 (1.002-1.035); SQUAMOUS EPITHELIAL CELL UR AU 7 /HPF (0-6); UROBILINOGEN, URINE AUTO 0.2 mg/dL (0.0-2.0); WBC, URINE AUTO 1 /HPF (0-3)
== END ==
LOC: M SFHCCLAY 08:29
PROVIDERS: ATTEND Nurse Practitioner Family
DX: R30.0 Dysuria (principal)

== ENCOUNTER → 2024-12-04 | Outpatient (REF) | payer OTHER | LOC: M SFHCCLAY 16:34 | PROVIDERS: ATTEND Nurse Practitioner Family | DX: J02.9 Acute pharyngitis, unspecified (principal) ==